=== PATIENT | female | born 1970 | race Caucasian/White ===

== ENCOUNTER 2018-06-08 16:20 | Emergency (ER) | payer OTHER ==
[~2018-06-08] VITALS: Ht 162.6 cm; Wt 83.9 kg
[2018-06-08] MEDS ORDERED: LISI5 (16:27)
[2018-06-08] MEDS ORDERED: POTCHL10ER (16:27)
[2018-06-08] MEDS ORDERED: ZESTORETIC 20-121 EA PO (16:39)
[2018-06-08] MEDS ORDERED: CYAN500 PO (16:40)
[2018-06-08] MEDS ORDERED: POTCHL20ER PO (16:40)
[2018-06-08] MEDS ORDERED: CHOL10002 PO (16:40)
[2018-06-08] MEDS ORDERED: Aspir 8181 MG PO (16:40)
[2018-06-08] MEDS ORDERED: MAGOXI400 PO (16:42)
[2018-06-08 16:43] LABS: BASOPHILS ABSOLUTE AUTO 0.08 K/mm3 (0.00-0.23); BASOPHILS PERCENT AUTO 1 % (0-2); EOSINOPHILS ABSOLUTE AUTO 0.16 K/mm3 (0.00-0.68); EOSINOPHILS PERCENT AUTO 1 % (0-6); Hematocrit 45.3 % (33.0-51.0); IMMATURE GRAN ABSOLUTE AUTO 0.07 K/mm3 (0.00-0.10); IMMATURE GRAN PERCENT AUTO 1 % (0-1); LYMPHOCYTES ABSOLUTE AUTO 3.16 K/mm3 (0.84-5.20); LYMPHOCYTES PERCENT AUTO 28 % (21-46); MONOCYTES ABSOLUTE AUTO 0.74 K/mm3 (0.16-1.47); MONOCYTES PERCENT AUTO 6 % (4-13); Mean Corpuscular HGB 31.3 pg (26.0-34.0); Mean Corpuscular HGB Conc 33.1 g/dL (31.5-36.5); Mean Corpuscular Volume 94 fL (80-100); Mean Platelet Volume 9.1 fL (9.1-12.4); NEUTROPHILS ABSOLUTE AUTO 7.27 K/mm3 (1.96-9.15); NEUTROPHILS PERCENT AUTO 63 % (41-73); Platelet Count 336 K/mm3 (150-400); RDW Coefficient Variation 13.4 % (11.7-14.2); RDW Standard Deviation 47.2 fL (35.1-46.3); White Blood Cell Count 11.48 K/mm3 (4.00-11.30)
[2018-06-08 17:11] LABS: Alanine Aminotransfer (ALT/SGP 32 U/L (12-78); Albumin, Blood 3.6 g/dL (3.4-5.0); Albumin/Globulin Ratio 0.9 (0.8-1.8); Alk Phos 58 U/L (50-136); Anion Gap 10 mmol/L (6-16); Aspartate Aminotrans (AST/SGOT 16 U/L (12-37); Bilirubin, Total 0.3 mg/dL (0.1-1.0); Blood Urea Nitrogen 14 mg/dL (8-24); Bun/Creatinine Ratio 20.9 (12.0-20.0); CO2, Blood 22 mmol/L (21-32); Calcium, Blood 9.5 mg/dL (8.5-10.1); Chloride, Blood 102 mmol/L (98-108); Creatinine, Blood 0.67 mg/dL (0.40-1.00); Globulin, Blood 4.2 g/dL (2.2-4.0); Glomerular Filtration Rate >60 (60-); Glucose, Blood 107 mg/dL (70-99); Potassium, Blood 3.7 mmol/L (3.5-5.5); Sodium, Blood 134 mmol/L (136-145); Total Protein, Blood 7.8 g/dL (6.4-8.2)
== END 2018-06-08 18:07 | disposition home or self-care (01) ==
LOC: ER 16:20
PROVIDERS: Emergency Medicine
DX: I49.3 Ventricular premature depolarization (principal); Z79.899 Other long term (current) drug therapy; J45.909 Unspecified asthma, uncomplicated; I10 Essential (primary) hypertension
CPT/HCPCS: 80053; 85025; 93005; 93010; 99283-25